=== PATIENT | female | born 1980 | race Caucasian/White ===

== ENCOUNTER 2017-11-23 12:59 | Inpatient (IN) | payer MEDICAID ==
[2017-11-23] VITALS (13 sets, daily range): BP systolic 101–122; BP diastolic 61–74; PULSE 68–79; RESP 18; TEMP 97.9–98.5
--- NOTE | 2017-11-23 14:13 | HHI.HP ---
HPI Chief Complaint contractions Date Seen: Nov 23, 2017 Time Seen: 14:08 Travel History International Travel<30 Days: No Contact w/Intl Traveler<30Days: No Known Affected Area: No History of Present Illness Weeks Gestation: 39 Para: 1 : 2 Last Menstrual Period: February 23, 2017 History Past Medical History Medical History: Denies Significant Hx Obstetric History Obstetric History Past Surgical History Narrative Surgical cone 2012 Family History Family History: Negative Social History Alcohol Use: No Tobacco Use: No Substance Abuse: No Allergies-Medications (Allergen,Severity, Reaction): Coded Allergies: amoxicillin (Unverified Allergy, Severe, rash, 05/19/17) penicillin G (Unverified Allergy, Severe, rash, 05/19/17) Review of Systems Except as stated in HPI: all other systems reviewed are Neg Physical Exam Narrative GENERAL: Well-nourished, well-developed patient. SKIN: Warm and dry. HEAD: Normocephalic and atraumatic. EYES: No scleral icterus. No injection or drainage. ENT: No nasal drainage noted. Mucous membranes pink. Airway patent. NECK: Supple, trachea midline. No JVD. CARDIOVASCULAR: Regular rate and rhythm without murmurs, gallops, or rubs. RESPIRATORY: Breath sounds equal bilaterally. No accessory muscle use. BREASTS: Bilateral exam showed no masses , no retractions, no nipple discharge. ABDOMEN/GI: Abdomen soft, non-tender, bowel sounds present, no rebound, no guarding Gravid to [38-] weeks size Fundal Height: [-] GENITOURINARY: External Genitalia: intact and normal in appearance BUS glands: [-] Cervix: [-] Dilatation: [4-] Effacement: [50-] Station: [-1] Presentation: [vtx-] Membranes: [intact or ruptured] Intact Uterine Contractions: [-] FHT's: Category: [-] Baseline: [-] Reactive: [-] Variability: [-] Decels: [-] EXTREMITIES: No cyanosis or edema. BACK: Nontender without obvious deformity. No CVA tenderness. NEUROLOGICAL: Awake and alert. Motor and sensory grossly within normal limits. Five out of 5 muscle strength in all muscle groups. Normal speech. Caprini VTE Risk Assessment Caprini VTE Risk Assessment: No/Low Risk (score <= 1) Caprini Risk Assessment Model Point Value = 1 Point Value = 2 Point Value = 3 Point Value = 5 Age 41-60 Minor surgery BMI > 25 kg/m2 Swollen legs Varicose veins or History of unexplained or recurrent spontaneous Oral contraceptives or hormone replacement Sepsis (< 1 month) Serious lung disease, including pneumonia (< 1 month) Abnormal pulmonary function Acute myocardial infarction Congestive heart failure (< 1 month) History of inflammatory bowel disease Medical patient at bed rest Age 61-74 Arthroscopic surgery Major open surgery (> 45 min) Laparoscopic surgery (> 45 min) Malignancy Confined to bed (> 72 hours) Immobilizing plaster cast Central venous access Age >= 75 History of VTE Family history of VTE Factor V Leiden Prothrombin [id number] Lupus anticoagulant Anticardiolipin antibodies Elevated serum homocysteine Heparin-induced thrombocytopenia Other congenital or acquired thrombophilia Stroke (< 1 month) Elective arthroplasty Hip, pelvis, or leg fracture Acute spinal cord injury (< 1 month) Prophylaxis Regimen Total Risk Factor Score Risk Level Prophylaxis Regimen 0-1 Low Early ambulation 2 Moderate Order ONE of the following: *Sequential Compression Device (SCD) *Heparin 5000 units SQ BID 3-4 Higher Order ONE of the following medications: *Heparin 5000 units SQ TID *Enoxaparin/Lovenox 40 mg SQ daily (WT < 150 kg, CrCl > 30 mL/min) *Enoxaparin/Lovenox 30 mg SQ daily (WT < 150 kg, CrCl > 10-29 mL/min) *Enoxaparin/Lovenox 30 mg SQ BID (WT < 150 kg, CrCl > 30 mL/min) AND/OR *Sequential Compression Device (SCD) 5 or more Highest Order ONE of the following medications: *Heparin 5000 units SQ TID (Preferred with Epidurals) *Enoxaparin/Lovenox 40 mg SQ daily (WT < 150 kg, CrCl > 30 mL/min) *Enoxaparin/Lovenox 30 mg SQ daily (WT < 150 kg, CrCl > 10-29 mL/min) *Enoxaparin/Lovenox 30 mg SQ BID (WT < 150 kg, CrCl > 30 mL/min) AND *Sequential Compression Device (SCD) Data Data Group B Strep: Negative Assessment/Plan Problem List: (1) state, incidental ICD Codes: Z33.1 - state, incidental Status: Acute Assessment and Plan 37 yo , IUP at 39 , favorable cervix, BPP 6/8 in office today admit for pit aug, analgesia prn, anticipate Discharge Planning routine Attending Attestation pt seen by Yeimy Montano MD Nov 23, 2017 14:13
[2017-11-23] MEDS ORDERED: NS 500 ML BOLUS OTHER PRN (14:30)
[2017-11-23] MEDS ORDERED: LACTATED RINGER'S 1000 ML BOLUS IV PRN (14:30)
[2017-11-23] MEDS ORDERED: NS 1000 ML OTHER PRN (14:30)
[2017-11-23] MEDS ORDERED: OXYTOCIN 30 UNITS/NS 500ML PREMIX IV PRN (14:30)
[2017-11-23] MEDS ORDERED: LIDOCAINE HCL 1% 50 ML VIAL I-DERMAL PRN (14:30)
[2017-11-23] MEDS ORDERED: CITRIC ACID-SODIUM CITRATE LIQ 30 ML UDC PO SCH (14:30)
[2017-11-23] MEDS ORDERED: OXYTOCIN 30 UNITS 500ML PREMIX IV ONE (14:30)
[2017-11-23] MEDS ORDERED: ONDANSETRON HCL 4 MG/2 ML VIAL IV PUSH PRN (14:30)
[2017-11-23] MEDS ORDERED: LIDOCAINE HCL 1% 50 ML VIAL INFIL PRN (14:30)
[2017-11-23] MEDS ORDERED: MINERAL OIL 10 ML VIAL TOPICAL PRN (14:30)
[2017-11-23] MEDS: LACTATED RINGER'S 1000 ML IV SCH (14:40)
[2017-11-23 14:42] LABS: AUTOMATED NEUTROPHIL # 6.3 TH/MM3 (1.8-7.7); BASOPHIL # 0.1 TH/MM3 (0-0.2); BASOPHIL % 0.6 % (0.0-2.0); EOSINOPHIL # 0.1 TH/MM3 (0-0.4); EOSINOPHIL % 1.6 % (0.0-4.0); HEMATOCRIT 35.1 % (35.0-46.0); HEMOGLOBIN 12.4 GM/DL (11.6-15.3); LYMPH % 20.1 % (9.0-44.0); LYMPHOCYTE # 1.8 TH/MM3 (1.0-4.8); MEAN CELL VOLUME 89.2 FL (80.0-100.0); MEAN CORPUSCULAR HEMOGLOBIN 31.4 PG (27.0-34.0); MEAN CORPUSCULAR HGB CONC 35.2 % (32.0-36.0); MEAN PLATELET VOLUME 8.7 FL (7.0-11.0); MONO % 8.2 % (0.0-8.0); MONOCYTE # 0.7 TH/MM3 (0-0.9); NEUT % 69.5 % (16.0-70.0); PLATELET COUNT 212 TH/MM3 (150-450); RED BLOOD COUNT 3.93 MIL/MM3 (4.00-5.30)
[2017-11-23 14:43] LABS: AMORPHOUS SEDIMENT, URINE RARE; BACTERIA, URINE MANY /hpf; BILIRUBIN, URINE NEG (NEG); BLOOD, URINE NEG (NEG); GLUCOSE,URINE NEG (NEG); KETONE, URINE NEG (NEG); MUCUS URINE FEW /lpf (OCC); NITRITE,URINE NEG (NEG); PH, URINE 5.5 (5.0-8.5); SQUAMOUS EPITHELIAL CELL URINE 2 /hpf (0-5); URINE COLOR YELLOW (YELLW/STRAW); URINE LEUKOCYTE ESTERASE SMALL (NEG)
[2017-11-24] VITALS (33 sets, daily range): BP systolic 102–170; BP diastolic 53–96; PULSE 67–88; RESP 18; TEMP 97.9–98.7
[2017-11-24] MEDS ORDERED: LIDOCAINE HCL 1% 20 ML VIAL ONE (01:58)
[2017-11-24] MEDS ORDERED: fentaNYL 2MCG-BUPIV 0.125% INJ 100 ML ONE (02:18)
[2017-11-24] MEDS: LACTATED RINGER'S 1000 ML IV SCH (02:36)
[2017-11-24] MEDS ORDERED: fentaNYL 2MCG-BUPIV 0.125% 100 ML EPIDURAL SCH (03:30)
[2017-11-24] MEDS ORDERED: NO SYSTEM NARCOTICS PRN (03:30)
[2017-11-24] MEDS ORDERED: ePHEDrine/NS 25 MG/5 ML SYRINGE IV PUSH PRN (03:30)
[2017-11-24] MEDS ORDERED: DO NOT ADMINISTER ANTICOAGULANTS PRN (03:30)
--- NOTE | 2017-11-24 05:37 | PD.OB.DELI ---
Weeks gestation: 39 Gest age assessed date: Nov 23, 2017 Gest age assessed time: 12:00 Pt started active labor?: Yes Active labor start date: Nov 24, 2017 Active labor start time: 01:06 Medical induction of labor?: Yes Medical induction start date: Nov 23, 2017 Medical induction start time: 15:00 Artificial rupture of membrane: Yes Artificial ROM date: Nov 24, 2017 Artifical ROM time: 01:06 Anesthesia: Epidural Episiotomy: None Vaginal Delivery: Normal Presentation: Occiput anterior Nuchal Cord: x1 Delayed cord clamping (45 sec): No Infant: Male Delivery date: Nov 24, 2017 Delivery time: 05:18 One Minute : 8 Five Minute : 9 Placenta: Spontaneous delivery Laceration: 2 deg (left periurethral) Repair: Chromic interrupted Estimated blood loss: 350cc Yeimy Poe MD Nov 24, 2017 05:37
[2017-11-24] MEDS ORDERED: DOCUSATE SODIUM 50 MG/SENNA 8.6 MG TAB PO PRN (05:45)
[2017-11-24] MEDS ORDERED: WITCH HAZEL 50%/GLYCERIN 12.5% 40 PAD JAR TOPICAL PRN (05:45)
[2017-11-24] MEDS ORDERED: OXYTOCIN 30 UNITS-500ML PREMIX 500 ML IV SCH (05:45)
[2017-11-24] MEDS ORDERED: ALUMINUM/MAGNESIUM/SIMETH 30 ML CUP PO PRN (05:45)
[2017-11-24] MEDS ORDERED: ACETAMINOPHEN 325 MG TAB PO PRN (05:45)
[2017-11-24] MEDS ORDERED: BENZOCAINE 20% TOPICAL SPRAY 60 ML CAN TOPICAL PRN (05:45)
[2017-11-24] MEDS ORDERED: SODIUM CHLORIDE 0.9% FLUSH 10 ML FLUSH IV FLUSH PRN (05:45)
[2017-11-24] MEDS ORDERED: ZOLPIDEM TARTRATE 5 MG TAB PO PRN (05:45)
[2017-11-24] MEDS ORDERED: ONDANSETRON ODT 4 MG TAB PO PRN (05:45)
[2017-11-24] MEDS ORDERED: SODIUM CHLORIDE 0.9% FLUSH 10 ML FLUSH IV FLUSH SCH (09:00)
[2017-11-24] MEDS: IBUPROFEN 800 MG TAB PO PRN ×2 (12:14→21:21)
[2017-11-24] MEDS ORDERED: DIPHTH/TETANUS/ACEL PERTUSSIS (BOOSTER) 0.5 ML VIAL/PFS IM ONE (16:00)
[2017-11-24] MEDS ORDERED: MEASLES, MUMPS, RUBELLA VACCINE 0.5 ML VIAL SQ ONE (16:00)
[2017-11-25] MEDS: IBUPROFEN 800 MG TAB PO PRN (07:24)
[2017-11-25 08:00] VITALS: BP 107/67; PULSE 64; RESP 14; TEMP 98.1
--- NOTE | 2017-11-25 08:08 | HHI.OB ---
Subjective Post Day: 1 Remarks doing well, Objective Vitals/I&O Vital Signs Date Time Temp Pulse Resp B/P (MAP) Pulse Ox O2 Delivery O2 Flow Rate FiO2 11/24/17 20:20 98.1 67 18 102/63 (76) 11/24/17 08:59 97.9 18 11/24/17 08:58 82 111/61 (78) Objective Remarks GENERAL: Well-nourished, well-developed patient. CARDIOVASCULAR: Regular rate and rhythm without murmurs, gallops, or rubs. RESPIRATORY: Breath sounds equal bilaterally. No accessory muscle use. ABDOMEN/GI: Abdomen soft, non-tender. Fundus: Firm, non-tender at umbilicus. GENITOURINARY: Light to moderate bleeding. EXTREMITIES: No cyanosis or edema, non-tender, without signs of DVT. Medications and IVs Current Medications Medications (Trade) Dose Ordered Sig/Radha Route Start Time Stop Time Status Last Admin (NS Flush) 2 ml BID IV FLUSH 11/24/17 09:00 (NS Flush) 2 ml UNSCH PRN IV FLUSH 11/24/17 05:45 (Tylenol) 650 mg Q4H PRN PO 11/24/17 05:45 (Motrin) 800 mg Q8H PRN PO 11/24/17 05:45 11/25/17 07:24 (Americaine 20% Top Spr) 1 spray Q4H PRN TOPICAL 11/24/17 05:45 11/24/17 09:32 (Tucks Pads) 1 applic QID PRN TOPICAL 11/24/17 05:45 11/24/17 09:32 (Ashley-Colace) 2 tab Q12H PRN PO 11/24/17 05:45 (Ambien) 5 mg HS PRN PO 11/24/17 05:45 (Mag-Al Plus Susp Liq) 15 ml Q8H PRN PO 11/24/17 05:45 (Zofran Odt) 4 mg Q6H PRN PO 11/24/17 05:45 Assessment/Plan Problem List: (1) state, incidental ICD Codes: Z33.1 - state, incidental Status: Acute (2) Vaginal delivery ICD Codes: O80 - Encounter for full-term uncomplicated delivery Assessment and Plan 37 yo , IUP at 39 , s/p , male for circ, PPD #1 Discharge Planning routine Attending Attestation pt seen by Yeimy Montano MD Nov 25, 2017 08:08
[2017-11-25] MEDS ORDERED: IBUP1TAB7 PO (08:15)
--- NOTE | 2017-11-25 08:15 | HHI.DCPOC ---
Discharge Care Plan Your Health Problems Are: Pelvic pain Report Symptoms to Your Doctor -Temperature above 100.5 degrees -Redness, of incision or excessive or foul smelling drainage -Unusual pain or calf pain -Increased vaginal bleeding -Painful or difficulty urinating -Feelings of extreme sadness or anxiety after 2 weeks Goals to Promote Your Health * To prevent worsening of your condition and complications * To maintain your health at the optimal level Directions to Meet Your Goals Take your medications as prescribed Follow your dietary instruction Follow activity as directed Ensure plenty of rest for recovery Drink fluids for hydration Keep your appointments as scheduled Take your immunizations and boosters as scheduled If your symptoms worsen call your PCP, if no PCP go to Urgent Care Center or Emergency Room Smoking is Dangerous to Your Health. Avoid second hand smoke Call the 24-hour crisis hotline for domestic abuse at Yeimy Poe MD Nov 25, 2017 08:15
== END 2017-11-25 18:45 | disposition home or self-care (01) | DRG 775 ==
LOC: H2EB 12:59 → H2EA 17:38 → H1EA 11-24 08:40
PROVIDERS: ADMIT Obstetrics & Gynecology; ATTEND Obstetrics & Gynecology
PROC: 3E033VJ Introduction of Other Hormone into Peripheral Vein, Percutaneous Approach (ICD-10-PCS; 2017-11-23)
PROC: 10E0XZZ Delivery of Products of Conception, External Approach (ICD-10-PCS; principal; 2017-11-24)
PROC: 0KQM0ZZ Repair Perineum Muscle, Open Approach (ICD-10-PCS; 2017-11-24)
PROC: 10907ZC Drainage of Amniotic Fluid, Therapeutic from Products of Conception, Via Natural or Artificial Opening (ICD-10-PCS; 2017-11-24)
DX: O69.81X0 Labor and delivery complicated by cord around neck, without compression, not applicable or unspecified (principal); O70.1 Second degree perineal laceration during delivery; Z37.0 Single live birth; Z3A.39 39 weeks gestation of pregnancy
CPT/HCPCS: 80307; 81001; 85025; 87086; 90715; J2590; J7120